=== PATIENT | female | born 1985 | race Caucasian/White ===

== ENCOUNTER 2019-04-04 06:08 | Inpatient (IN) | payer OTHER, MEDICAID, SELFPAY ==
[2019-04-04] VITALS (83 sets, daily range): BP systolic 0–171; BP diastolic 0–102; PULSE 58–110; RESP 16–20; TEMP 36.7–36.9; O2SAT 93–98; BMI 41.3
[2019-04-04] MEDS: dextrose 5%-lactated ringers 1,000 ML 125 ML IV ×3 (07:19→20:15)
[2019-04-04] MEDS: acetaminophen 325 mg Tablet 650 MG PO (07:23)
[2019-04-04] MEDS: oxytocin 30 UNIT/500 ML BAG IV (07:33)
[2019-04-04 07:41] LABS: Basophils % 0.4 %; Eosinophils # 0.1 10^3/uL (0.0-0.8); Hematocrit 38.7 % (37.0-47.0); Hemoglobin 12.9 g/dL (11.5-15.3); Lymphocytes # 1.2 10^3/uL (0.8-4.8); Lymphocytes % 14.6 %; Mean Corpuscular HGB Conc 33.3 g/dL (30.0-36.0); Mean Corpuscular Hemoglobin 28.5 pg (28.0-34.0); Mean Corpuscular Volume 85.4 fL (81-99); Mean Platelet Volume 12.1 fL (7.4-10.4); Monocytes # 0.7 10^3/uL (0.2-0.9); Monocytes % 8.5 %; Neutrophils % 75.2 %; Nucleated Red Blood Cells % 0 %; Platelet Count 205 10^3/cmm (130-400); Red Blood Count 4.53 10^6/uL (4.1-5.3); Red Cell Distribution Width 13.7 % (12.1-15.1)
--- NOTE | 2019-04-04 08:03 | P.HP_ITS ---
Providers/Chief Complaint Admitting Physician: Alex Valverde MD Chief Complaint: IUP History of Present Illness Rahel Wallis is a 33 year old G3, P1 at 40.1 weeks gestation by LMP consistent with 12-week ultrasound. Her is complicated by obesity, family history of cystic fibrosis, father baby was color-blindness, borderline blood pressures at 35 weeks gestation. The patient presents to labor and delivery triage for induction of labor secondary to postdates. The patient is feeling well at this time. She denies a ny chest pains, shortness of breath, headaches, nausea, vomiting, diarrhea, constipation, dysuria, leakage of fluid, fevers. The patient admits to some mild spotting that started this morning. It was mixed with mucus. Medications/Allergies Home Medications Medication Instructions Recorded Confirmed Last Taken Type PNV cmb#95-ferrous fumarate-FA 1 tab PO DAILY 04/04/19 04/04/19 1 Day Ago History [] ~04/03/19 0500 Allergies Allergy/AdvReac Type Severity Reaction Status Date / Time No Known Drug Allergies Allergy Unknown Verified 04/04/19 07:14 PFSH Acute PFSH: Statuses (acute, chronic, etc) shown below reflect problem list status as previously entered and may not be historically accurate Medical History Non-smoker (Acute) Surgical History (Updated 04/04/19 @ 08:07 by Alex Valverde MD) H/O right inguinal hernia repair (Acute) Female Reproductive History: Date of last menstrual period: 06/27/18 : 3 Vitals/I&O/Wt Last Vital Signs Temp 98.4 F 04/04/19 06:36 Pulse 80 04/04/19 07:47 Resp 16 04/04/19 06:36 BP 114/87 04/04/19 07:47 Weight last 48 hrs Weight 264 lb Physical Exam Narrative: EXAM NARRATIVE: General: Alert and oriented x3 Eyes: Pupils equal round and reactive to light and accommodation Mouth: Mucous membranes moist, pharynx non-erythematous Cardiac: Regular rate and rhythm without murmurs Lungs: Clear to auscultation bilaterally without wheezes, crackles or rhonchi Abdomen: Soft, non-tender, fundus consistent with gestational age, vertex Extremities: Trace edema in the bilateral lower extremities Data : 04/04/19 07:00 A&P Additional A&P Information The patient is doing well at this time. She denies any concerns. heart tones are currently in the mid 130s with moderate variability and accelerations. There was initially a 1 minute deceleration below baseline. At this time the infant is reactive. The patient is 1 cm dilated with 40% effacement currently. Typically I would start Cytotec, however with the deceleration, we will start IV Pitocin as it can be turned off quickly if needed. The patient is GBS negative. The patient and her are in agreement with the current plan of care. All questions were answered. Attestations Medical Necessity Statement*: The patient will be here for greater than 2 midnights due to routine intrapartum and management of labor and delivery. Coding Level of Care Code Acute Hot Dipper for Lanie Celaya
[2019-04-04] MEDS: lactated ringers 1,000 ML 125 ML IV (11:33)
[2019-04-04] MEDS: butorphanol 2 mg/mL SDV 1 mL 1 MG IVP (14:09)
[2019-04-04] MEDS: ondansetron 2 mg/ML SDV 2 mL 4 MG IVP (14:14)
[2019-04-04] MEDS: lactated ringers 1,000 ML 999 ML IV (14:37)
--- NOTE | 2019-04-04 14:40 | ANES.PREANE2 ---
Pre-Anesthetic Assessment Pre-Anesthetic Assessment: Height/Weight: Height 1.7 m Weight 119.748 kg Temp Pulse Resp BP Pulse Ox 98.2 F 98 17 129/71 96 04/04/19 10:09 04/04/19 15:12 04/04/19 10:09 04/04/19 15:12 04/04/19 15:13 Preop Diagnosis: IUP Proposed Procedure: Epidural Familial anesthetic complications: none Was Beta Arely taken within 24 hours: N/A Last intake: 04/03/19 Social: Social History: No alcohol and No tobacco Exam: Pre-Anes Outpt Exam: alert, oriented x 3, clear to auscultation bilaterally and regular rate & rhythm Airway: Submandibular: WNL Cervical ROM: WNL MP: 2 (okay) Pulmonary: Pulmonary: None reported CV/HEM: CV/HEM: None reported : : None reported Hepatic: Hepatic: None reported GI: GI: None reported Metabolic: Metabolic: None reported Musc/skel: Musc/skel: None reported Neuropsych: Neuropsych: None reported Anesthetic Plan: ASA status: I Anesthesia: Anesthesia Evaluation and Regional (specify below) (epidural) Risk of > 500 ml blood loss (7ml/kg in children): No Meds/Allergies Current Medications: Current Medications Generic Name Dose Route Start Last Admin Trade Name Freq PRN Reason Stop Dose Admin Acetaminophen 650 mg 04/04/19 06:36 04/04/19 07:23 Tylenol PO 650 mg Q6H PRN Administration Mild pain or temp > 100.4 Butorphanol Tartra te 1 mg 04/04/19 06:36 04/04/19 14:09 Stadol IVP 1 mg Q2H PRN Administration SEVERE PAIN Lactated Ringer's 1,000 mls @ 999 m ls/hr 04/04/19 06:36 04/04/19 14:39 Lactated Ringers IV Infused .Q1H1M PRN Infusion Per L&D Rescitati on Protocol Oxytocin 30 unit in 500 ml s @ 1 mls/hr 04/04/19 06:45 04/04/19 08:40 Pitocin IV 5 milliunit/min .Q24H MATT 5 mls/hr Titration Protocol 1 MILLIUNIT/MIN Dextrose/Lactated Ringer's 1,000 mls @ 125 m ls/hr 04/04/19 06:45 04/04/19 10:43 Dextrose 5%-Lact ated Ringers IV Infused .Q8H MATT Infusion Ondansetron HCl 4 mg 04/04/19 06:36 04/04/19 14:14 Zofran IVP 4 mg Q4H PRN Administration NAUSEA AND VOMITI NG PFSH Anesthesia PFSH: Medical History Non-smoker (Acute) Surgical History (Updated 04/04/19 @ 08:07 by Alex Valverde MD) H/O right inguinal hernia repair (Acute) Female Reproductive History: Date of last menstrual period: 06/27/18 : 3 Data Anesthesia CBC & Chem 7: 04/04/19 07:00 Other Labs: Laboratory Results - last 48 hr 04/04/19 07:00 WBC 8.0 RBC 4.53 Hgb 12.9 Hct 38.7 MCV 85.4 MCH 28.5 MCHC 33.3 RDW 13.7 Plt Count 205 MPV 12.1 H Neut % (Auto) 75.2 Lymph % (Auto) 14.6 [place] % (Auto) 8.5 Eos % (Auto) 1.0 Baso % (Auto) 0.4 Neut # (Auto) 6.0 Lymph # (Auto) 1.2 [place] # (Auto) 0.7 Eos # (Auto) 0.1 Baso # (Auto) 0.0 Nucleated RBC % (auto) 0 Nucleated RBCs # 0.0 Cardiac Studies: No Data to Display
--- NOTE | 2019-04-04 15:19 | ANES.PROC ---
Anesthesia Procedures Procedure/Date: 04/04/19 Epidural Epidural: Time Out Performed: Yes Consents Signed: Procedure Consent Consent: from patient, risks and benefits reviewed and patient agrees to proceed Lumbar Level: L3-L4 Epidural position: sitting Epidural procedure: sterile prep of area, 1% lidocaine to numb the area, 18 g needle, negative for paresthesia passed, test dose given, 1.5% xylocaine 1:200k epi (5ml), placed PCEA, no systemic response, sterile dressing applied, L.U.D. no apparent complications and 0.2% Ropiavacaine @ mls/hr (13)
[2019-04-04] MEDS: oxytocin 30 UNIT/500 ML BAG 600 UNIT IV (18:46)
--- NOTE | 2019-04-04 19:05 | PM.DELIVERY ---
 Delivery Note: Date of delivery: April 04, 2019 Pre-delivery diagnoses: 1. Intrauterine at 40.1 weeks gestation 2. Obesity 3. Family history of cystic fibrosis 4. Father baby with colorblindness 5. Borderline blood pressure at 35 weeks Post-delivery diagnoses: Rahel Wallis is a 33 year old G3 now P2 status post spontaneous vaginal delivery at 40.1 weeks gestation by LMP consistent with 12-week ultrasound. Her was complicated by obesity, family history of cystic fibrosis, father baby was color-blindness, borderline blood pressures at 35 weeks gestation. 1. Intrauterine status post spontaneous vaginal delivery at 40.1 weeks gestation 2. Obesity 3. Family history of cystic fibrosis 4. Father baby with colorblindness 5. Borderline blood pressure at 35 weeks 6. Delivery of healthy infant male weighing 7 pounds 1 ounce with Apgars of 8 and 9 Procedure: Spontaneous vaginal delivery Op report anesthesia: Epidural Delivering Physician: Alex Valverde MD Estimated blood loss (mL): 75 Findings: 1. Delivery of healthy infant male weighing 7 pounds 1 ounce with Apgars of 8 and 9 2. Intact placenta with central umbilical cord insertion site. Overall placental size was small. Pre-Delivery Course: The patient was admitted to labor and delivery triage for induction secondary to postdates. The patient was 1 cm dilated upon admission and had a deceleration that was concerning, so she was started on IV Pitocin instead of Cytotec in order to be able to stop the induction quickly if needed. The patient did have some intermittent decelerations that were typically early in nature, however occasionally with certain positions were more prolonged. These improved with position changes and fluid boluses. The patient's IV Pitocin initially had been increased up to 9, however had to be decreased to 5 secondary to heart tone tracings that were questionable. Was felt that these could be late decelerations and the patient was watched closely. The patient had spontaneous rupture of membranes at 1525 on 04/04/2019. The fluid was noted to be clear. The patient continued to have some heart tone tracings that were questionable and position changes and fluid boluses were done as well as given oxygen. The patient continued to make change up to 7 cm dilation. Eventually the IV Pitocin had to be stopped due to concerning heart tones. The patient stopped making change, so she was put into a knee-chest. With this the patient quickly began to feel increased pressure and shortly afterwards she was noted to be complete. The patient was complete at 1830 on 04/04/2019. Delivery: The patient began pushing at 1837 on 04/04/2019. The patient pushed well and delivered the infant in the OA position at 1840 on 04/04/2019. The left shoulder was the anterior shoulder and it delivered with ease. There was no nuchal cord. The rest of the delivered without complication. The infant's mouth and nose were bulb suctioned by myself and the had very good tone upon delivery and began crying shortly after delivery. The infant was placed on the mother's chest where the nurses were waiting to care for him. The cord was clamped by myself after approximately 1 minute and cut by the 's father. Cord blood was then obtained and the rest of the blood was drained from the umbilical cord. Traction was placed on umbilical cord and the placenta delivered without complication at 1846 on 04/04/2019. IV Pitocin was bolused. The placenta was noted to be intact with a central umbilical cord insertion site. The placenta was noted to be quite small considering the 's size. There were a moderate amount of twists in the umbilical cord and a moderate amount of Worthon's Jelly. The uterus was massaged and very little bleeding was noted. The cervix was inspected and no lacerations were noted. The vaginal wall was inspected and a small perineal abrasion was noted that was not bleeding. No suturing was needed. Currently both the mother and are doing very well. We will proceed with routine care. Coding Level of Care Code Acute Marketing Professional for Lanie Celaya
[2019-04-05 00:45] VITALS: BP 122/64; PULSE 87; RESP 16
[2019-04-05 02:50] VITALS: BP 100/61; PULSE 84; RESP 17; TEMP 36.5
[2019-04-05 05:00] VITALS: BP 122/78; PULSE 83; RESP 18; TEMP 36.8
--- NOTE | 2019-04-05 06:31 | PC.NURSE ---
At 2100 on 04/04/19 this nurse assisted the patient with latching techniques, positioning. was very eager to latch. Patient was very open to trying different positions. Patients nipple is flat and large making it difficult for to latch deeply. Patient shared that she had exclusively pumped for 4 months with her older child due to difficulty with latching. After multiple attempts to latch this nurse discussed trying a nipple shield. Patient was open to try. This nurse instructed patient on use and cleaning of nipple shield. Patient was able to place the nipple shield and get infant to latch with minimal staff assistance.
[2019-04-05 06:55] LABS: Hematocrit 38.7 % (37.0-47.0); Hemoglobin 12.7 g/dL (11.5-15.3); Mean Corpuscular HGB Conc 32.8 g/dL (30.0-36.0); Mean Corpuscular Hemoglobin 28.1 pg (28.0-34.0); Mean Corpuscular Volume 85.6 fL (81-99); Mean Platelet Volume 11.4 fL (7.4-10.4); Platelet Count 207 10^3/cmm (130-400); Red Blood Count 4.52 10^6/uL (4.1-5.3); Red Cell Distribution Width 13.7 % (12.1-15.1); White Blood Count 10.9 10^3/uL (4.0-10.0)
--- NOTE | 2019-04-05 08:10 | P.DS_ITS ---
Discharge Providers Date of Admission: 04/04/19 06:08 Date of Discharge: Date of Discharge: April 05, 2019 Attending Provider at Admission: Alex Valverde MD Attending Provider at Discharge: Alex Valverde MD Diagnoses at Discharge Discharge Diagnosis (1) Intrauterine : Status: Acute Other Information Additional DC diagnoses/information: 1. Intrauterine status post spontaneous vaginal delivery at 40.1 weeks gestation 2. Obesity 3. Family history of cystic fibrosis 4. Father baby with colorblindness 5. Borderline blood pressure at 35 weeks 6. Delivery of healthy male weighing 7 pounds 1 ounce with Apgars of 8 and 9 Reason for Visit Reason for Visit: Reason For Visit: IUP Hospital Course Hospital Course: Pre-Delivery Course: The patient was admitted to labor and delivery triage for induction secondary to postdates. The patient was 1 cm dilated upon admission and had a deceleration that was concerning, so she was started on IV Pitocin instead of Cytotec in order to be able to stop the induction quickly if needed. The patient did have some intermittent decelerations that were typically early in nature, however occasionally with certain positions were more prolonged. These improved with position changes and fluid boluses. The patient's IV Pitocin initially had been increased up to 9, however had to be decreased to 5 secondary to heart tone tracings that were questionable. Was felt that these could be late decelerations and the patient was watched closely. The patient had spontaneous rupture of membranes at 1525 on 04/04/2019. The fluid was noted to be clear. The patient continued to have some heart tone tracings that were questionable and position changes and fluid boluses were done as well as given oxygen. The patient continued to make change up to 7 cm dilation. Eventually the IV Pitocin had to be stopped due to concerning heart tones. The patient stopped making change, so she was put into a knee-chest. With this the patient quickly began to feel increased pressure and shortly afterwards she was noted to be complete. The patient was complete at 1830 on 04/04/2019. Delivery: The patient began pushing at 1837 on 04/04/2019. The patient pushed well and delivered the in the OA position at 1840 on 04/04/2019. The left shoulder was the anterior shoulder and it delivered with ease. There was no nuchal cord. The rest of the infant delivered without complication. The infant's mouth and nose were bulb suctioned by myself and the infant had very good tone upon delivery and began crying shortly after delivery. The infant was placed on the mother's chest where the nurses were waiting to care for him. The cord was clamped by myself after approximately 1 minute and cut by the 's father. Cord blood was then obtained and the rest of the blood was drained from the umbilical cord. Traction was placed on umbilical cord and the placenta delivered without complication at 1846 on 04/04/2019. IV Pitocin was bolused. The placenta was noted to be intact with a central umbilical cord insertion site. The placenta was noted to be quite small considering the infant's size. There were a moderate amount of twists in the umbilical cord and a moderate amount of Worth[place]'s Jelly. The uterus was massaged and very little bleeding was noted. The cervix was inspected and no lacerations were noted. The vaginal wall was inspected and a small perineal abrasion was noted that was not bleeding. No suturing was needed. Currently both the mother and are doing very well. We will proceed with routine care. course: The patient is done very well without any complications. Her bleeding is decreasing well. Her pain has been well controlled with Motrin alone. She is ambulating, voiding, passing gas and tolerating food by mouth. At this point she is in agreement to be discharged home. All questions were answered. Routine instructions were given. She is to call my office if she is having any concerns. Physical Exam Narrative: EXAM NARRATIVE: General: Alert and oriented x3 Cardiac: Regular rate and rhythm without murmurs Lungs: Clear to auscultation bilaterally without wheezes, crackles or rhonchi Abdomen: Soft, nontender, fundus is firm and well below the umbilicus. Extremities: Trace edema Urinary Catheter Management^: [place]: Cath Placed During This Visit: yes, but has since been removed by the nurse Reason for Continuing Indwelling Catheter: Decision to DC Catheter Urinary Catheter Date of Insertion: 04/04/19 Urinary Catheter Time of Insertion: 15:25 Date Urinary Catheter Removed: 04/04/19 Time Urinary Catheter Discontinued: 18:35 Discharge Data Data Completed and Pending: Labs from last 24 hours 04/05/19 06:46 WBC 10.9 H RBC 4.52 Hgb 12.7 Hct 38.7 MCV 85.6 MCH 28.1 MCHC 32.8 RDW 13.7 Plt Count 207 MPV 11.4 H Vitals: Last Vital Signs Temp 98.3 F 04/05/19 05:00 Pulse 83 04/05/19 05:00 Resp 18 04/05/19 05:00 BP 122/78 04/05/19 05:00 Pulse Ox 98 04/04/19 15:23 Discharge Plan Discharge Patient Disposition: Home, Self-Care Condition: Good Prescriptions: New ibuprofen 800 mg Tablet 800 mg PO TID Qty: 60 RF: 0 Continued 28 mg iron- 800 mcg Tablet 1 tab PO DAILY RF: 0 Discharge Orders: Discharge Order (Routine); Ordered 04/05/19 Ordered By: Alex Valverde Referrals: Alex Valverde MD [Physician] - 6 Weeks (Please schedule your 6 week appointment at clinic when you arrive for baby's appointment) Discharge Diet: Regular Discharge Activity: Resume usual activity Patient Instructions: Ibuprofen (By mouth), Vaginal Delivery (DC), OB Discharge Report, OB Food/Drug Interaction Guide, OB Home Care, OB Proud Parent Packet Activity Restrictions/Additional Instructions: Nothing per vagina for 6 weeks. If you have any concerns prior to your next appointment, please call for a sooner appointment. Discharge Attestations Time Spent in Discharge Care*: greater than 30 min Specific Discharge Activities: Specific discharge activities: educating patient, educating and/or supporting family/caregiver and documenting/other paperwork Quality Metrics Clinical Quality Measures During this hospital stay, did patient experience: None Coding Level of Care Code Acute Sporting Goods Sales Manager for Chg Fwd Diagnoses Intrauterine Z34.90
[2019-04-05] MEDS: prenatal vitamin Capsule 1 CAP PO (09:16)
[2019-04-05] MEDS: docusate sodium 100 mg Capsule PO (09:16)
[2019-04-05 10:00] VITALS: BP 128/68; PULSE 72; RESP 18; TEMP 36.8; O2SAT 99
[2019-04-05 21:07] VITALS: BP 123/84; PULSE 80; RESP 16; TEMP 36.8
== END 2019-04-05 21:30 | disposition home or self-care (01) | DRG 807 ==
PROVIDERS: Admitting Provider Family Medicine; Family Provider Electrodiagnostic Medicine; Visit Provider Family Medicine
DX: O48.0 Post-term pregnancy (principal); Z37.0 Single live birth; O99.214 Obesity complicating childbirth; Z3A.40 40 weeks gestation of pregnancy; O76 Abnormality in fetal heart rate and rhythm complicating labor and delivery
CPT/HCPCS: 12345; 36415; 51702; 59409; 85025; 85027; 96375; 98960; J0595; J2405; J2795

== ENCOUNTER → 2021-06-16 13:34 | Outpatient (BNVA) | payer OTHER, SELFPAY | PROVIDERS: Family Provider Electrodiagnostic Medicine; Visit Provider Family Medicine | DX: M25.561 Pain in right knee (principal); Z13.6 Encounter for screening for cardiovascular disorders | CPT/HCPCS: 80053; 80061; 85025 ==

== ENCOUNTER → 2023-04-01 13:02 | Outpatient (BNVA) | payer OTHER, SELFPAY | PROVIDERS: Family Provider Electrodiagnostic Medicine; PCP Family Medicine; Visit Provider Family Medicine | DX: Z00.00 Encounter for general adult medical examination without abnormal findings (principal); Z13.6 Encounter for screening for cardiovascular disorders | CPT/HCPCS: 80053; 80061; 84443; 85025 ==

== ENCOUNTER → 2023-08-18 14:43 | Outpatient (BNVA) | payer OTHER, SELFPAY | PROVIDERS: Family Provider Electrodiagnostic Medicine; PCP Family Medicine; Visit Provider Family Medicine | DX: Z01.419 Encounter for gynecological examination (general) (routine) without abnormal findings (principal) | CPT/HCPCS: 87624 ==